=== PATIENT | male | born 1980 | race Asian ===

== ENCOUNTER 2021-02-16 23:29 | Emergency (ER) | payer BC ==
--- NOTE | 2021-02-17 00:14 | ED Physician Documentation ---
PD HPI MALE - Stated complaint Stated Complaint: MALE /BLOODCLOT/LIGHTHEADED - Chief complaint Chief Complaint: Abd Pain - History obtained from History obtained from: Patient - History of Present Illness Timing - onset: Today Timing - duration: Days (1) Timing - details: Abrupt onset, Still present in ED Associated symptoms: Dysuria, Urinary frequency, Hematuria (with some clots out this evening.) PD HPI MALE CONTRIB FACTORS: Sexually active (with of many years) Similar symptoms before: Has not had sx before Recently seen: Not recently seen Review of Systems Constitutional: denies: Fever, Chills Nose: denies: Rhinorrhea / runny nose, Congestion Throat: denies: Sore throat Respiratory: denies: Cough : reports: Dysuria, Frequency. denies: Discharge Skin: denies: Rash, Lesions PD PAST MEDICAL HISTORY - Past Medical History Past Medical History: No Cardiovascular: None Respiratory: None Neuro: None Endocrine/Autoimmune: None GI: None : None HEENT: None Psych: None Musculoskeletal: None Derm: None - Past Surgical History Past Surgical History: No - Present Medications Home Medications: Ambulatory Orders Medication Instructions Recorded Confirmed Phenazopyridine HCl [Pyridium] 100 mg PO TID PRN #15 tablet 02/17/21 Sulfamethox/Trimeth 800/160 1 each PO BID #14 tablet 02/17/21 [Bactrim Ds 800/160] - Allergies Allergies/Adverse Reactions: Allergies Allergy/AdvReac Type Severity Reaction Status Date / Time No Known Drug Allergies Allergy Verified 02/16/21 23:51 - Social History Does the pt smoke?: No Smoking Status: Never smoker Does the pt drink ETOH?: No Does the pt have substance abuse?: No - Immunizations Immunizations are current?: Yes - POLST Patient has POLST: No PD ED PE NORMAL - Vitals Vital signs reviewed: Yes - General General: Alert and oriented X 3, No acute distress, Well developed/nourished - Abdomen Abdomen: Soft, Non tender - Male Male : Deferred - Back Back: No CVA TTP - Derm Derm: Normal color, Warm and dry - Neuro Neuro: Alert and oriented X 3, No motor deficit, Normal speech Results - Vitals Vitals: Vital Signs - 24 hr 02/16/21 02/16/21 02/17/21 23:51 23:55 00:34 Temperature 36.9 C 36.9 C Heart Rate 88 88 Respiratory 18 18 16 Rate Blood Pressure 142/93 H 142/93 H O2 Saturation 98 98 02/17/21 02/17/21 00:48 01:21 Temperature Heart Rate Respiratory 15 15 Rate Blood Pressure 135/89 H O2 Saturation Oxygen O2 Source Room air - Labs Labs: Microbiology 02/17/21 00:00 Urine Culture - Preliminary Urine,Clean Catch CULTURE IN PROGRESS. RESULTS TO FOLLOW. Laboratory Tests 02/17/21 00:00 Urine Color YELLOW Urine Clarity HAZY Urine pH 6.0 Ur Specific [place] 1.015 Urine Protein 100 H Urine Glucose (UA) NEGATIVE Urine Ketones NEGATIVE Urine Occult Blood LARGE H Urine Nitrite POSITIVE H Urine Bilirubin NEGATIVE Urine Urobilinogen 0.2 (NORMAL) Ur Leukocyte Esterase LARGE H Urine RBC TNTC H Urine WBC >25 H Ur Squamous Epith Cells NONE SEEN Urine Bacteria Few Ur Microscopic Review INDICATED Urine Culture Comments INDICATED PD MEDICAL DECISION MAKING - ED course Complexity details: reviewed results (UA c/w infection. Bladder scanner shows small amount, so no retention, just feeling of implete emptying. ), considered differential, d/w patient Departure - Departure Disposition: 01 Home, Self Care Clinical Impression: Dysuria UTI (urinary tract infection) Qualifiers: Urinary tract infection type: acute cystitis Hematuria presence: with hematuria Qualified Code(s): N30.01 - Acute cystitis with hematuria Condition: Stable Record reviewed to determine appropriate education?: Yes Instructions: ED UTI Cystitis Male Follow-Up: Prince Umanzor MD [Primary Care Provider] - Prescriptions: Sulfamethox/Trimeth 800/160 [Bactrim Ds 800/160] 1 each PO BID #14 tablet Phenazopyridine HCl [Pyridium] 100 mg PO TID PRN #15 tablet PRN Reason: Abdominal Pain Comments: Your urine does show signs of infection and some blood with the bladder infection is relatively common. The bleeding should stop as the infection is healing over the next 2 to 3 days. Stay well-hydrated. Anti-inflammatories such as ibuprofen or naproxen can help with the discomfort. Phenazopyridine will also help with the discomfort by numbing the inside of the bladder. It will turn the urine orange-colored so not to worry. Bactrim antibiotic twice daily for a week for the infection. Recheck if not improving well over the next 2 to 3 days and resolved by 3 to 5 days. Sooner if worse. Discharge Date/Time: 02/17/21 01:47
[2021-02-17 00:25] LABS: BILIRUBIN,URINE NEGATIVE (NEGATIVE); GLUCOSE, URINE (UA) NEGATIVE (NEGATIVE); KETONES,URINE (UA) NEGATIVE (NEGATIVE); LEUKOCYTE ESTERASE, URINE LARGE (NEGATIVE); NITRITE,URINE POSITIVE (NEGATIVE); OCCULT BLOOD,URINE LARGE (NEGATIVE); PROTEIN,URINE 100 mg/dL (NEGATIVE); UROBILINOGEN,URINE 0.2 (NORMAL) E.U./dL (NORMAL)
[2021-02-17 00:26] LABS: CLARITY,URINE HAZY (CLEAR)
[2021-02-17 00:33] LABS: RBC,URINE TNTC /HPF (0-5); WBC,URINE >25 /HPF (0-3)
[2021-02-17 00:34] LABS: BACTERIA,URINE Few /HPF (None Seen); SQUAMOUS EPITHELIAL CELL,UR NONE SEEN (<= Few)
[2021-02-17] MEDS ORDERED: PHENAZOPYRIDINE 100 MG TABLET PO STA (00:36)
[2021-02-17] MEDS ORDERED: IBUPROFEN 600 MG TABLET PO STA (00:36)
[2021-02-17] MEDS ORDERED: SULFAMETH/TRIMETH DS 800/160 MG TABLET PO STA (00:36)
[2021-02-17 00:49] VITALS: BP 135/89
== END 2021-02-17 01:47 | disposition home or self-care (01) ==
LOC: ED 23:29
DX: N30.01 Acute cystitis with hematuria (principal)
CPT/HCPCS: 51798; 81001; 87086; 87181; 99283; 99284; A9270; 81003